=== PATIENT | female | born 1990 | race Caucasian/White ===

== ENCOUNTER → 2019-12-28 13:43 | Outpatient (CLI) | payer BC, SELFPAY ==
--- NOTE | 2019-12-28 13:51 | MM_ITS ---
PROCEDURE: MM DIG MAMM DX UNILAT LT CAD Digital Breast Tomosynthesis Included CLINICAL INDICATION: ENLARGED LYMPH NODES IN ARMPIT, BREAST LUMP IN upper outer quadrant COMPARISON: US US BREAST LT COMPLETE from 12/28/2019 TECHNIQUE: Standard CC and MLO images and 3D Tomosynthesis was obtained. R2 CAD reviewed. FINDINGS: Breast is composed primarily of fat with scattered fibroglandular densities. A skin marker was placed upper-outer quadrant. There is an area of slightly asymmetric glandular elements below the skin marker. Link images reveal no definite mass and there is no obvious architectural distortion. Ultrasound performed the same date showed fairly well-defined hypoechoic lesion 2 o'clock position most consistent with a lipoma measuring approximately 1 point 7 by 1.3 cm. I would recommend a six-month follow-up left mammogram and ultrasound to evaluate for interval stability. IMPRESSION: Fatty parenchyma with asymmetric glandular elements as described BI-RAD Category: 3 Probably Benign Finding Short Term Follow-up FOLLOW-UP: 6M 6Month Follow-up (A letter has been sent to the patient regarding results of the study.) Dictated by: Dr. Fran Shoemaker MD 01/02/2020 07:52 Dr. Fran Shoemaker MD in [place] 01/02/2020 07:52
--- NOTE | 2019-12-28 13:51 | US_ITS ---
PROCEDURE: US BREAST LT COMPLETE CLINICAL INDICATION: ENLARGED LYMPH NODES IN ARMPIT, BREAST LUMP IN FEMALE COMPARISON: US BL US BREAST-LT COMPLETE W/AXILLA from 08/14/2015 FINDINGS: Ultrasound reveals primarily homogeneous echogenicity consistent with fatty breast parenchyma. There is a hypoechoic oval well-defined lesion at the 2 o'clock position outer breast measuring approximately 1.3 by 1.7 cm. There are 2 normal appearing nodes in the axilla. IMPRESSION: Probable lipoma however recommend patient return for six-month follow-up left mammogram and ultrasound exam to evaluate for interval stability. Dictated by: Dr. Fran Shoemaker MD 01/02/2020 07:54 Dr. Fran Shoemaker MD in [place] 01/02/2020 07:54
== END ==
PROVIDERS: PCP Nurse Practitioner; Visit Provider Nurse Practitioner
DX: N63.21 Unspecified lump in the left breast, upper outer quadrant (principal); R59.0 Localized enlarged lymph nodes
CPT/HCPCS: 76641; 77061; 77065; G0279

== ENCOUNTER → 2021-03-18 10:58 | Outpatient (CLI) | payer BC, SELFPAY | PROVIDERS: PCP Family Medicine; Visit Provider Nurse Practitioner | DX: Z20.822 Contact with and (suspected) exposure to COVID-19 (principal) | CPT/HCPCS: C9803; U0003; U0005 ==

== ENCOUNTER 2021-03-19 17:55 | Emergency (ER) | payer BC, SELFPAY ==
[2021-03-19 18:25] VITALS: BP 121/88; PULSE 100; RESP 18; TEMP 37.8; O2SAT 98; BMI 40.2
[2021-03-19 18:43] LABS: UTC Strep Screen (Rapid) Positive (Negative)
--- NOTE | 2021-03-19 18:46 | HMH.EDUTC ---
[facility] [place] Disposition Clinical Impression: Strep throat Disposition: Home, Self-Care Condition on Discharge: Good Instructions: DI for Strep Throat, Strep Throat Additional Instructions: Drink plenty of fluids. Take tylenol or ibuprofen for pain or fever. Take the medications as directed. Follow up with your regular doctor. GO TO THE ER FOR ANY WORSENING SYMPTOMS Throw your tooth brush away and get a new one. Prescriptions: Brompheniramine/Pseudoephed/Dm [Bromfed Dm Cough Syrup] 5 ml PO Q6HP PRN #240 ml PRN Reason: Cough Transmission Status: Pending to [facility] Amoxicillin [Amoxicillin 500mg Tab] 500 mg PO TID 10 Days #30 tab Transmission Status: Pending to [facility] predniSONE [Prednisone 20mg Tab] 20 mg PO BID 4 Days #8 tab Transmission Status: Pending to [facility] Referrals: Serafin Alcala MD [Primary Care Provider] - Forms: Work/School Release Time of Disposition: 18:48 Medical Decision Making - Medical Records Medical records reviewed: No: I reviewed the patient's medical records. - Hitesh Inquiry Pt receiving controlled substance: No Vital Signs: 03/19/21 18:25 Temperature 100.1 F H Temperature Source Oral Pulse Rate [Left Radial] 100 H Respiratory Rate 18 Blood Pressure [Right Arm] 121/88 Blood Pressure Mean [Right Arm] 99 Blood Pressure Source [Right Arm] Automatic Cuff Blood Pressure Position [Right Arm] Sitting 02 Sat by Pulse Oximetry 98 Oxygen Delivery Method Room Air - Lab Data Lab results reviewed: Yes: I reviewed the patient's lab results. Lab Results 03/19/21 18:27: Strep Scn Rapid Clinic Positive A [facility] [place] HPI - General Stated complaint: sore throat Time Seen by Provider: 03/19/21 18:46 Mode of Arrival: Ambulatory Source of Information: Patient Limitations: No Limitations Description of Symptoms (Recalled from Triage Doc. by RN): pt to [facility] c/o sore throat x2 days ago HEENT Symptoms (Recalled from RN notes): Yes Resp Symptoms (Recalled from RN notes): No Skin Symptoms (Recalled from RN notes): No MS Symptoms (Recalled from RN notes): No Functional Status (Recalled from RN notes): na - History of Present Illness Provider Complaint: She c/o sore throat for the past 2 days. She has a runny nose and sinus congestion also. She has ran a fever up to 100.4. - Related Data Previous Rx's Medication Instructions Recorded Brompheniramine/Pseudoephed/Dm 10 ml PO Q6HP PRN #300 syrup 01/30/18 [Bromfed Dm Cough Syrup] Fluticasone Propionate [Flonase 2 spr NS DAILY #1 bottle 01/30/18 50mcg nasal spray 16gm] Amoxicillin [Amoxicillin 500mg Tab] 500 mg PO TID 10 Days #30 tab 03/19/21 Brompheniramine/Pseudoephed/Dm 5 ml PO Q6HP PRN #240 ml 03/19/21 [Bromfed Dm Cough Syrup] predniSONE [Prednisone 20mg 20 mg PO BID 4 Days #8 tab 03/19/21 Tab] Allergies Allergy/AdvReac Type Severity Reaction Status Date / Time Sulfa (Sulfonamide Allergy Verified 07/16/17 11:54 Antibiotics) - Worker's Comp Is this a Worker's Comp case?: No [facility] History - Hepatitis A Screen Drug use history?: No High risk sexual behaviors?: No History of sexually transmitted infection?: No Currently employed?: No Childcare worker?: No Do you have indoor plumbing?: Yes Do you have electricity?: Yes Attestation statement:: This patient has been screened for Hepatitis A risk factors. I have reviewed the patient's past medical history: Yes Other Surgeries: Yes: No Previous Surgery - Social History Smoking Status: Never smoker Alcohol Intake: never Substance Use Type: denies use Family Hx:: No significant family history ROS Obtained: Yes All systems reviewed & no additional complaints - Constitutional Constitutional: Reports as per HPI - Eyes Eyes: Denies eye discharge - ENT Ears, Nose, Mouth, and Throat: Reports as per HPI - Cardiovascular Cardiovascular: Denies chest pain - Respiratory Respiratory: Denies ch
[2021-03-19 18:58] VITALS: BP 120/89; PULSE 97; RESP 18; TEMP 37.7; O2SAT 98
== END 2021-03-19 18:59 | disposition home or self-care (01) ==
PROVIDERS: Emergency Provider Nurse Practitioner Family; PCP Family Medicine
DX: J02.0 Streptococcal pharyngitis (principal)
CPT/HCPCS: 87880; 99202; G0463

== ENCOUNTER 2021-03-31 17:08 | Emergency (ER) | payer BC, SELFPAY ==
[2021-03-31 17:10] VITALS: BP 119/77; PULSE 89; RESP 18; TEMP 37; O2SAT 99; BMI 39.3
[2021-03-31 17:23] LABS: UTC Strep Screen (Rapid) Negative (Negative)
--- NOTE | 2021-03-31 17:56 | HMH.EDUTC ---
[facility] [place] Clinical Impression: Upper respiratory infection Qualifiers: URI type: unspecified URI Qualified Code(s): J06.9 - Acute upper respiratory infection, unspecified Disposition: Home, Self-Care Condition on Discharge: Good Instructions: Sore Throat, Azithromycin Additional Instructions: *Monitor Temp, Over the counter Motrin or Tylenol as directed/as needed Tylenol every 4 hours and Motrin every 6 hours (as long as your family doctor has told you that you can take it) for fever or pain. and straight to ER if unable to lower temp less than 101.0 after medication given *Warm salt water gargles may help to soothe the throat *Throat Lozenges *Warm fluids like tea with honey may help to soothe the throat *Sleep elevated *Humidifier/Vaporizer *Flonase 2 sprays in each nostril daily but be aware that it may take 2-3 days before you notice improvement Your throat swab was sent for culture. Those results are typically sent to your primary care. Be sure to follow up in 2-3 days with your family doctor/primary care physician if no improvement so they can review those result and treat if necessary. If you don?t have a primary care doctor, I recommend you get one but in the mean time, you will have to return to a walk in clinic Follow up IMMEDIATELY for new or worsening symptoms or no Noticeable improvement over the next 48-72 hours. 911 for difficulty breathing or swallowing Prescriptions: Fluticasone Propionate [Flonase 50mcg nasal spray 16gm] 1 spr NS DAILY #1 each Transmission Status: Pending to [facility] Azithromycin [Z-Jules 250mg Tab] 250 mg PO DIRECTED #6 tab Transmission Status: Pending to [facility] Referrals: Serafin Alcala MD [Primary Care Provider] - As needed Time of Disposition: 18:05 Medical Decision Making - Hitesh Inquiry Pt receiving controlled substance: No Hitesh was queried for this patient: No Vital Signs: 03/31/21 17:10 Temperature 98.6 F Temperature Source Oral Pulse Rate [Right Brachial] 89 Respiratory Rate 18 Blood Pressure [Right Arm] 119/77 Blood Pressure Mean [Right Arm] 91 Blood Pressure Source [Right Arm] Automatic Cuff Blood Pressure Position [Right Arm] Sitting 02 Sat by Pulse Oximetry 99 Oxygen Delivery Method Room Air - Lab Data Lab results reviewed: Yes: I reviewed the patient's lab results. Lab Results 03/31/21 17:12: Strep Scn Rapid Clinic Negative Orders (Tests/Meds): ORDERS Category Date Time Status Strep Screen Confirmation Stat Micro 03/31/21 17:12 [place] [facility] [place] - General Stated complaint: sore throat Time Seen by Provider: 03/31/21 17:56 Mode of Arrival: Ambulatory Source of Information: Patient Limitations: No Limitations Description of Symptoms (Recalled from Triage Doc. by RN): PATIENT C/O SORE THROAT X 2 DAYS HEENT Symptoms (Recalled from RN notes): Yes Resp Symptoms (Recalled from RN notes): No Skin Symptoms (Recalled from RN notes): No MS Symptoms (Recalled from RN notes): No Functional Status (Recalled from RN notes): WNL - History of Present Illness Provider Complaint: Patient states that she has been having sore throat for several days States that she was worried that she may have Strep throat so she came in wanting to get checked States that she doesnt feel like the antibiotics cleared up the strep throat - Related Data Previous Rx's Medication Instructions Recorded Azithromycin [Z-Jules 250mg Tab] 250 mg PO DIRECTED #6 tab 03/31/21 Fluticasone Propionate [Flonase 1 spr NS DAILY #1 each 03/31/21 50mcg nasal spray 16gm] Allergies Allergy/AdvReac Type Severity Reaction Status Date / Time Sulfa (Sulfonamide Allergy Verified 07/16/17 11:54 Antibiotics) - Worker's Comp Is this a Worker's Comp case?: No [facility] History - Hepatitis A Screen Drug use history?: No High risk sexual behaviors?: No History of sexually transmitted infection?: No Currently employed?: No
[2021-03-31 18:09] VITALS: BP 119/77; PULSE 89; RESP 18; TEMP 37; O2SAT 99
== END 2021-03-31 18:11 | disposition home or self-care (01) ==
PROVIDERS: Emergency Provider Nurse Practitioner; PCP Family Medicine
DX: J06.9 Acute upper respiratory infection, unspecified (principal); Z88.2 Allergy status to sulfonamides
CPT/HCPCS: 87880; 99202; G0463

== ENCOUNTER 2021-04-03 19:51 | Emergency (ER) | payer BC, SELFPAY ==
[2021-04-03 20:00] VITALS: BP 137/100; PULSE 109; RESP 20; TEMP 36.6; O2SAT 100; BMI 40.2
--- NOTE | 2021-04-03 20:34 | HMH.EDUTC ---
[facility] [place] Disposition Clinical Impression: Pharyngitis Qualifiers: Pharyngitis/tonsillitis etiology: unspecified etiology Qualified Code(s): J02.9 - Acute pharyngitis, unspecified Disposition: Home, Self-Care Condition on Discharge: Good Instructions: DI for Pharyngitis/Tonsillopharyngitis -- Adult, Dexamethasone Injection Additional Instructions: Drink plenty of fluids. Take tylenol or ibuprofen for pain or fever. Follow up with your regular doctor. GO TO THE ER FOR ANY WORSENING SYMPTOMS Follow up with the ENT doctor (Dr. Baum) if your sore throat continues. Any sore throat that last over 2 weeks without getting better can be considered a chronic sore throat and should be evaluated by an ENT doctor if it is not mononucleosis. Referrals: Destiny Calhoun MD [Primary Care Provider] - Víctor Baum MD [Staff Physician] - Time of Disposition: 21:40 Medical Decision Making - Medical Records Medical records reviewed: No: I reviewed the patient's medical records. - Hitesh Inquiry Pt receiving controlled substance: No Vital Signs: 04/03/21 20:00 04/03/21 21:19 Temperature 97.9 F 97.9 F Temperature Source Oral Pulse Rate 109 H Pulse Rate [Left] 109 H Respiratory Rate 20 20 Blood Pressure 137/100 H Blood Pressure [Right Arm] 137/100 H Blood Pressure Mean [Right Arm] 112 02 Sat by Pulse Oximetry 100 - Lab Data Lab results reviewed: Yes: I reviewed the patient's lab results. Lab Results 04/03/21 20:43: Strep Scn Rapid Clinic Negative 04/03/21 21:16: Monoscreen Negative Orders (Tests/Meds): ED MEDICATIONS Discontinued Medications Generic Name Dose Route Start Last Admin Trade Name Freq PRN Reason Stop Dose Admin Dexamethasone Sodium Phosphate 8 mg 04/03/21 21:34 04/03/21 21:38 Dexamethasone 4mg/Ml 1ml Vial IM 04/03/21 21:35 8 mg ONCE ONE Administration ORDERS Category Date Time Status Full Resp Panel w/COVID ([facility]) Routine Lab 04/03/21 21:16 Received Strep Screen Confirmation Routine Micro 04/03/21 20:43 Received [facility] [place] HPI - General Stated complaint: sore throat Time Seen by Provider: 04/03/21 20:36 Mode of Arrival: Ambulatory Source of Information: Patient Limitations: No Limitations Description of Symptoms (Recalled from Triage Doc. by RN): pt states she tested positive for strep on 03/19. pt was given amoxicillin and steroids. pt came back on 03/31 and tested neg. for strep. pt was given a zpack. pt is back today stating if feels like there is something stuck in her throat on the R side. HEENT Symptoms (Recalled from RN notes): Yes (sore throat) Resp Symptoms (Recalled from RN notes): No Skin Symptoms (Recalled from RN notes): No MS Symptoms (Recalled from RN notes): No Functional Status (Recalled from RN notes): wnl - History of Present Illness Provider Complaint: She is back with continued sore throat. She was diagnosed with strep throat and treated with amoxicillin and steroids. She got better from that, then on 03/31 her sore throat returned. She came back there then and tested negative for strep throat. She was started on a z-pack then. She states that today her throat has got worse instead of better. Her soreness is located on the right side of her throat. She also has had some mild right ear pain and fullness. She denies any fever, chills or cough since she got better from the strep throat after 03/19. - Related Data Previous Rx's Medication Instructions Recorded Azithromycin [Z-Jules 250mg Tab] 250 mg PO DIRECTED #6 tab 03/31/21 Fluticasone Propionate [Flonase 1 spr NS DAILY #1 each 03/31/21 50mcg nasal spray 16gm] Allergies Allergy/AdvReac Type Severity Reaction Status Date / Time Sulfa (Sulfonamide Allergy Verified 07/16/17 11:54 Antibiotics) - Worker's Comp Is this a Worker's Comp case?: No [facility] History - Hepatitis A Screen Drug use history?: No High risk sexual behaviors?: No History of sexually transmit
[2021-04-03 20:58] LABS: UTC Strep Screen (Rapid) Negative (Negative)
[2021-04-03 21:19] VITALS: BP 137/100; PULSE 109; RESP 20; TEMP 36.6
[2021-04-03 21:26] LABS: Adenovirus,PCR Not Detected (NotDetected); Bordetella Pertussis Not Detected (NotDetected); Chlamydophila Pneumoniae, PCR Not Detected (NotDetected); Coronavirus 19, PCR Not Detected (NotDetected); Coronavirus 229E Not Detected (NotDetected); Coronavirus NL63 Not Detected (NotDetected); Coronavirus OC43 Not Detected (NotDetected); Coronovirus HKU1,PCR Not Detected (NotDetected); Human Metapneumovirus Not Detected (NotDetected); Influenza A, PCR Not Detected (NotDetected); Influenza AH1, 2009 Not Detected (NotDetected); Influenza AH1, PCR Not Detected (NotDetected); Influenza AH3,PCR Not Detected (NotDetected); Influenza B, PCR Not Detected (NotDetected); Mycoplasma Pneumoniae, PCR Not Detected (NotDetected); Parainfluenza 1, PCR Not Detected (NotDetected); Parainfluenza 2, PCR Not Detected (NotDetected); Parainfluenza 3, PCR Not Detected (NotDetected); Parainfluenza 4, PCR Not Detected (NotDetected); Respiratory Syncytial Virus Not Detected (NotDetected); Rhinovirus/Enterovirus Not Detected (NotDetected)
[2021-04-03 21:37] LABS: Monoscreen (Rapid) Negative (Negative)
== END 2021-04-03 21:53 | disposition home or self-care (01) ==
PROVIDERS: Emergency Provider Nurse Practitioner Family; PCP Family Medicine
DX: J02.9 Acute pharyngitis, unspecified (principal); Z20.822 Contact with and (suspected) exposure to COVID-19
CPT/HCPCS: 86318; 87581; 87632; 87798; 87880; 96372; 99203; C9803; G0463; U0003; U0005

== ENCOUNTER 2021-05-07 17:01 | Emergency (ER) | payer BC, SELFPAY ==
[2021-05-07 18:00] VITALS: BP 135/96; PULSE 89; RESP 21; TEMP 36.7; O2SAT 97; BMI 41.6
[2021-05-07 18:17] LABS: UTC Strep Screen (Rapid) Positive (Negative)
--- NOTE | 2021-05-07 18:26 | HMH.EDUTC ---
[facility] [place] Disposition Clinical Impression: Strep throat Disposition: Home, Self-Care Condition on Discharge: Good Instructions: Strep Throat, DI for Strep Throat, Amoxicillin Additional Instructions: *Monitor Temp, Over the counter Motrin or Tylenol as directed/as needed Tylenol every 4 hours and Motrin every 6 hours (as long as your family doctor has told you that you can take it) for fever or pain. and straight to ER if unable to lower temp less than 101.0 after medication given *Warm salt water gargles may help to soothe the throat *Throat Lozenges *Warm fluids like tea with honey may help to soothe the throat *Sleep elevated *Humidifier/Vaporizer *If you did not take Penicillin shot or was unable to, start taking antibiotic immediately and make sure that you take it for the FULL length of time although you should start to feel better in 24-48 hours *change toothbrush and toothpaste 24-48 hours after starting to take antibiotics so you do not reinfect yourself Monitor Temp. Tylenol and/or Ibuprofen as needed. ER if fever is no less than 101 despite alternating Tylenol and Ibuprofen * Encourage fluids, water, Gatorade, powerade, pedialyte if /toddler/or child *Cold fluids, popsicles and ice cream may feel good on his throat Follow up IMMEDIATELY for new or worsening symptoms or no Noticeable improvement over the next 48-72 hours. 911 for difficulty breathing or swallowing Prescriptions: Amoxicillin [Amoxicillin 875MG Tab] 875 mg PO Q12H #20 tab Transmission Status: Pending to [facility] Referrals: Destiny Calhoun MD [Primary Care Provider] - As needed Time of Disposition: 18:34 Medical Decision Making - Hitesh Inquiry Pt receiving controlled substance: No Hitesh was queried for this patient: No Vital Signs: 05/07/21 18:00 05/07/21 18:30 Temperature 98.1 F 98.1 F Temperature Source Oral Pulse Rate 89 Pulse Rate [Left Brachial] 89 Respiratory Rate 21 21 Blood Pressure 135/96 H Blood Pressure [Left Arm] 135/96 H Blood Pressure Mean [Left Arm] 109 Blood Pressure Source [Left Arm] Automatic Cuff Blood Pressure Position [Left Arm] Sitting 02 Sat by Pulse Oximetry 97 Oxygen Delivery Method Room Air - Lab Data Lab results reviewed: Yes: I reviewed the patient's lab results. Lab Results 05/07/21 18:09: Strep Scn Rapid Clinic Positive A [facility] [place] HPI - General Stated complaint: sore throat Time Seen by Provider: 05/07/21 18:26 Mode of Arrival: Ambulatory Source of Information: Patient Limitations: No Limitations Description of Symptoms (Recalled from Triage Doc. by RN): PATIENT C/O SORE THROAT SINCE THIS MORNING HEENT Symptoms (Recalled from RN notes): Yes Resp Symptoms (Recalled from RN notes): No Skin Symptoms (Recalled from RN notes): No MS Symptoms (Recalled from RN notes): No Functional Status (Recalled from RN notes): WNL - History of Present Illness Provider Complaint: Patient state that she woke up this morning with sore throat States that as the day went on it continued to get worse State that this evening her throat was still hurting so she came into get checked States that she gets strep throat often - Related Data Previous Rx's Medication Instructions Recorded Amoxicillin [Amoxicillin 875MG 875 mg PO Q12H #20 tab 05/07/21 Tab] Allergies Allergy/AdvReac Type Severity Reaction Status Date / Time Sulfa (Sulfonamide Allergy Verified 07/16/17 11:54 Antibiotics) - Worker's Comp Is this a Worker's Comp case?: No [facility] History - Hepatitis A Screen Drug use history?: No High risk sexual behaviors?: No History of sexually transmitted infection?: No Currently employed?: No Childcare worker?: No Do you have indoor plumbing?: Yes Do you have electricity?: Yes Attestation statement:: This patient has been screened for Hepatitis A risk factors. I have reviewed the patient's past medical history: Yes Other Surgeries: Yes: No Previous Surgery
[2021-05-07 18:30] VITALS: BP 135/96; PULSE 89; RESP 21; TEMP 36.7; O2SAT 97
== END 2021-05-07 18:39 | disposition home or self-care (01) ==
PROVIDERS: Emergency Provider Nurse Practitioner; PCP Family Medicine
DX: J02.0 Streptococcal pharyngitis (principal)
CPT/HCPCS: 87880; 99202; G0463

== ENCOUNTER 2021-09-13 13:35 | Emergency (ER) | payer BC, SELFPAY ==
[2021-09-13 14:59] VITALS: BP 124/86; PULSE 105; RESP 17; TEMP 37.2; O2SAT 100; BMI 40.2
--- NOTE | 2021-09-13 15:17 | HMH.EDUTC ---
[facility] [place] Impression: Strep throat Disposition: Home, Self-Care Condition on Discharge: Good Instructions: Strep Throat, DI for Strep Throat, Amoxicillin Additional Instructions: *Monitor Temp, Over the counter Motrin or Tylenol as directed/as needed Tylenol every 4 hours and Motrin every 6 hours (as long as your family doctor has told you that you can take it) for fever or pain. and straight to ER if unable to lower temp less than 101.0 after medication given *Warm salt water gargles may help to soothe the throat *Throat Lozenges *Warm fluids like tea with honey may help to soothe the throat *Sleep elevated *Humidifier/Vaporizer *If you did not take Penicillin shot or was unable to, start taking antibiotic immediately and make sure that you take it for the FULL length of time although you should start to feel better in 24-48 hours *change toothbrush and toothpaste 24-48 hours after starting to take antibiotics so you do not reinfect yourself Monitor Temp. Tylenol and/or Ibuprofen as needed. ER if fever is no less than 101 despite alternating Tylenol and Ibuprofen * Encourage fluids, water, Gatorade, powerade, pedialyte if /toddler/or child *Cold fluids, popsicles and ice cream may feel good on his throat Follow up IMMEDIATELY for new or worsening symptoms or no Noticeable improvement over the next 48-72 hours. 911 for difficulty breathing or swallowing Prescriptions: Amoxicillin [Amoxicillin 500mg Tab] 500 mg PO BID 10 Days #20 tab Transmission Status: Received by [id number] Referrals: Destiny Calhoun MD [Primary Care Provider] - As needed Time of Disposition: 15:45 Medical Decision Making - Hitesh Inquiry Pt receiving controlled substance: No Hitesh was queried for this patient: No Vital Signs: 09/13/21 14:59 Temperature 99.0 F Temperature Source Oral Pulse Rate [Left Radial] 105 H Respiratory Rate 17 Blood Pressure [Right Arm] 124/86 Blood Pressure Mean [Right Arm] 98 02 Sat by Pulse Oximetry 100 - Lab Data Lab results reviewed: Yes: I reviewed the patient's lab results. Lab Results 09/13/21 14:55: Group A Strep Rapid Positive A Orders (Tests/Meds): ED MEDICATIONS Discontinued Medications Generic Name Dose Route Start Last Admin Trade Name Freq PRN Reason Stop Dose Admin Methylprednisolone Sodium Succinate 125 mg 09/13/21 15:45 09/13/21 15:52 Methylprednisolone Sod Succ 125mg Vial IM 09/13/21 15:46 125 mg ONCE ONE Administration Medical Decision Narrative: denies states that she has [place] [facility] [place] - General Stated complaint: sore throat Time Seen by Provider: 09/13/21 15:17 Source of Information: Patient Description of Symptoms (Recalled from Triage Doc. by RN): patient comes in today for sore throat. symtpoms began yesterday HEENT Symptoms (Recalled from RN notes): Yes Resp Symptoms (Recalled from RN notes): No Skin Symptoms (Recalled from RN notes): No MS Symptoms (Recalled from RN notes): No Functional Status (Recalled from RN notes): wnl - History of Present Illness Provider Complaint: Patient states that she started having sore throat yesterday and it has continued to get worse States that today her throat was still hurting so she came in to get it checked out - Related Data Previous Rx's Medication Instructions Recorded Amoxicillin [Amoxicillin 875MG 875 mg PO Q12H #20 tab 05/07/21 Tab] Amoxicillin [Amoxicillin 500mg Tab] 500 mg PO BID 10 Days #20 tab 09/13/21 Allergies Allergy/AdvReac Type Severity Reaction Status Date / Time Sulfa (Sulfonamide Allergy Verified 07/16/17 11:54 Antibiotics) - Worker's Comp Is this a Worker's Comp case?: No [facility] History - Hepatitis A Screen Attestation statement:: This patient has been screened for Hepatitis A risk factors. I have reviewed the patient's past medical history: Yes Other Surgeries: Yes: No Previous Surgery - Social Histo
[2021-09-13 15:35] LABS: Strep Scrn Group A (Rapid) Positive (Negative)
[2021-09-13 15:53] VITALS: BP 124/86; PULSE 105; RESP 17; TEMP 37.2
== END 2021-09-13 16:03 | disposition home or self-care (01) ==
PROVIDERS: Emergency Provider Nurse Practitioner; PCP Family Medicine
DX: J02.0 Streptococcal pharyngitis (principal)
CPT/HCPCS: 87430; 99212; G0463

== ENCOUNTER → 2021-12-18 12:44 | Outpatient (CLI) | payer BC, SELFPAY ==
--- NOTE | 2021-12-18 13:15 | US_ITS ---
FINAL REPORT CLINICAL HISTORY: PELVIC PAIN FINDINGS: Transvaginal sonographic images of the pelvis were obtained. The uterus measures 7.3 x 4.6 x 3.7 cm. The endometrium measures 3 mm, which is within normal limits. An IUD is seen within the endometrial cavity. No uterine mass is identified. The right ovary measures 3.2 cm in length and left ovary measures 3.1 cm in length. Normal blood flow seen to the ovaries. Small follicles are present. There is no evidence of free fluid. IMPRESSION: IUD within the endometrial cavity. No acute abnormality identified. Reviewed, Interpreted and Dictated by Blayne Daily III, MD Transcribed by Harjinder Woods Authenticated and [facility]
== END ==
PROVIDERS: PCP Family Medicine; Visit Provider Nurse Practitioner Family
DX: R10.2 Pelvic and perineal pain (principal)
CPT/HCPCS: 76830

== ENCOUNTER 2022-07-31 13:02 | Emergency (ER) | payer BC, SELFPAY ==
[2022-07-31 13:03] VITALS: BP 119/80; PULSE 77; RESP 20; TEMP 36.9; O2SAT 100; BMI 39.3
[2022-07-31 13:36] LABS: Apearance,Urine Clear (Clear); Color,Urine Yellow (Yellow)
--- NOTE | 2022-07-31 13:36 | EXP.UTC ---
Discharge Plan Disposition Patient Disposition: Home, Self-Care Condition: Good Prescriptions Prescriptions: New phenazopyridine 200 mg Tablet 200 mg PO TID 2 Days Qty: 6 0RF nitrofurantoin monohyd/m-cryst [Macrobid] 100 mg Capsule 100 mg PO BID Qty: 10 0RF Rx Instructions: must administer with a meal/food No Action amoxicillin 500 MG tablet 500 mg PO BID 10 Days Qty: 20 0RF amoxicillin 875 MG tablet 875 mg PO Q12H Qty: 20 0RF Referrals Follow up/Referrals: Destiny Calhoun MD [Primary Care Provider] - See instructions Activity Restrictions/Add. Instructions Additional Instructions/Restrictions: Drink plenty of fluids. Take tylenol or ibuprofen for pain or fever. Take the medications as directed. Follow up with your regular doctor. GO TO THE ER FOR ANY WORSENING SYMPTOMS The pyridium will make your urine turn orange, this is an expected side effect. It will stain your clothes if it comes into contact with them. We will culture the urine. That will tell what bacteria is causing your infection and which antibiotics will treat it best. Sometimes the first antibiotic we prescribe turns out to not work against different bacteria. So, make sure you follow up within 3 days if you are not getting better. Clinical Impressions Clinical Impression: UTI (urinary tract infection) Instructions Patient Instructions: Urine Culture, DI for Urinary Tract Infection (UTI), Phenazopyridine Discharge ED Provider: Calderon Gill [facility] General Stated complaint: corbin when urinates Mode of Arrival: Ambulatory Source of Information: Patient Limitations: No Limitations Time Seen by Provider: 07/31/22 13:36 Description of Symptoms (Recalled from Triage Doc. by RN): burn with urination HEENT Symptoms (Recalled from RN notes): No Resp Symptoms (Recalled from RN notes): No Skin Symptoms (Recalled from RN notes): No MS Symptoms (Recalled from RN notes): No Functional Status (Recalled from RN notes): n/a History of Present Illness Provider Complaint: She states that she has had dysuria for the past 2 days. Related Data Previous Rx's Medication Instructions Recorded amoxicillin 875 mg tablet 875 mg PO Q12H #20 tabs 05/07/21 amoxicillin 500 mg tablet 500 mg PO BID 10 days #20 tabs 09/13/21 nitrofurantoin 100 mg PO BID #10 caps 07/31/22 monohydrate/macrocrystals 100 mg capsule (Macrobid) phenazopyridine 200 mg tablet 200 mg PO TID 2 days #6 tabs 07/31/22 Allergies Allergy/AdvReac Type Severity Reaction Status Date / Time Sulfa (Sulfonamide Allergy Verified 07/16/17 11:54 Antibiotics) Worker's Comp Is this a Worker's Comp case?: No PFSH [facility] Disclaimer: The information contained in this section may have been updated after the patient was seen, as this information can be updated by other users. Social History Smoking Status: Never smoker alcohol intake: never substance use type: denies use current occupational status: employed Travel in the last 8 weeks: None ROS Obtained: Yes All systems reviewed & no additional complaints except as documented Constitutional Constitutional: Reports system reviewed and no additional complaints, except as documented, Denies chills and Denies fever(s) Eyes Eyes: Denies eye discharge ENT Ears, Nose, Mouth, and Throat: Denies dysphagia, Denies sore throat and Denies throat swelling Cardiovascular Cardiovascular: Denies chest pain and Denies dyspnea Respiratory Respiratory: Denies chest congestion, Denies cough and Denies dyspnea Gastrointestinal Gastrointestingal: Denies abdominal pain, constipation, diarrhea, dysphagia, nausea or vomiting Genitourinary Female Genitourinary: Reports as per HPI, Reports dysuria, Reports sexual dysfunction, Reports urinary frequency, Denies urinary incontinence and Reports urinary hesitancy Musculoskeletal Musculoskeletal: Denies arthralgias a
[2022-07-31 13:37] LABS: Bilirubin,Urine Negative (Negative); Blood, Urine 2+ (Negative); Glucose,Urine (UA) Negative (Negative); Ketones,Urine Negative (Negative); Protein,Urine 1+ (Negative); Specific Gravity, Urine 1.025 (1.005-1.030); UTC Leukocyte Esterase,Urine 1+ (Negative); UTC Nitrate,Urine Negative (Negative); Urobilinogen,Urine 1 EU/dl (0.2)
[2022-07-31 14:01] VITALS: BP 119/80; PULSE 77; RESP 20; TEMP 36.9; O2SAT 100
== END 2022-07-31 14:00 | disposition home or self-care (01) ==
PROVIDERS: Emergency Provider Nurse Practitioner Family; PCP Family Medicine
DX: N39.0 Urinary tract infection, site not specified (principal); B96.89 Other specified bacterial agents as the cause of diseases classified elsewhere
CPT/HCPCS: 81003; 87086; 87088; 87186; 99212; 99214; G0463

== ENCOUNTER 2022-08-30 15:43 | Emergency (ER) | payer BC, SELFPAY ==
[2022-08-30 16:15] VITALS: BP 146/90; PULSE 84; RESP 20; TEMP 36.9; O2SAT 98; BMI 41.3
[2022-08-30 16:36] LABS: UTC Strep Screen (Rapid) Negative (Negative)
--- NOTE | 2022-08-30 16:37 | EXP.UTC ---
Discharge Plan Disposition Patient Disposition: Home, Self-Care Condition: Good Prescriptions Prescriptions: No Action levothyroxine 25 mcg tablet 25 mcg PO DAILY Referrals Follow up/Referrals: Destiny Calhoun MD [Primary Care Provider] - See instructions Activity Restrictions/Add. Instructions Additional Instructions/Restrictions: Monitor Temp, Over the counter Motrin or Tylenol as directed/as needed Tylenol every 4 hours and Motrin every 6 hours (as long as your family doctor has told you that you can take it) for fever or pain. and straight to ER if unable to lower temp less than 101.0 after medication given *Warm salt water gargles may help to soothe the throat *Throat Lozenges? *Warm fluids like tea with honey may help to soothe the throat? *Sleep elevated *Humidifier/Vaporizer Your throat swab was sent for culture. Those results are typically sent to your primary care. Be sure to follow up in 2-3 days with your family doctor/primary care physician if no improvement so they can review those result and treat if necessary. If you don?t have a primary care doctor, I recommend you get one but in the mean time, you will have to return to a walk in clinic Follow up IMMEDIATELY for new or worsening symptoms or no Noticeable improvement over the next 48-72 hours. 911 for difficulty breathing or swallowing Clinical Impressions Clinical Impression: Acute sore throat Stand Alone Forms Stand Alone Forms: Work/School Release Instructions Patient Instructions: Sore Throat Discharge ED Provider: Jessica Barfield [facility] General Stated complaint: Sore throat Mode of Arrival: Ambulatory Source of Information: Patient Limitations: No Limitations Time Seen by Provider: 08/30/22 16:38 Description of Symptoms (Recalled from Triage Doc. by RN): PATIENT C/O SORE THROAT THAT STARTED THIS MORNING HEENT Symptoms (Recalled from RN notes): Yes Resp Symptoms (Recalled from RN notes): No Skin Symptoms (Recalled from RN notes): No MS Symptoms (Recalled from RN notes): No Functional Status (Recalled from RN notes): WNL History of Present Illness Provider Complaint: Patient states that she has been having sore throat since this morning Denies fever, denies headache States that throat hurt on her right side when she would swallow and worried she may have strep throat Related Data Home Medications Medication Instructions Recorded Confirmed levothyroxine 25 mcg tablet 25 mcg PO DAILY Hypothyroid 08/30/22 08/30/22 Allergies Allergy/AdvReac Type Severity Reaction Status Date / Time Sulfa (Sulfonamide Allergy Verified 07/16/17 11:54 Antibiotics) Worker's Comp Is this a Worker's Comp case?: No [facility] Disclaimer: The information contained in this section may have been updated after the patient was seen, as this information can be updated by other users. Social History (Updated 08/01/22 @ 13:22 by Calderon Gill APRN) Smoking Status: Never smoker alcohol intake: never substance use type: denies use current occupational status: employed Travel in the last 8 weeks: None ROS Obtained: Yes All systems reviewed & no additional complaints except as documented and Yes Systems reviewed as appropriate & no additional complaints except as documented Constitutional Constitutional: Reports system reviewed and no additional complaints, except as documented and Reports as per HPI ENT Ears, Nose, Mouth, and Throat: Reports system reviewed and no additional complaints, except as documented, Reports as per HPI and Reports sore throat Cardiovascular Cardiovascular: Reports system reviewed and no additional complaints, except as documented and Reports as per HPI Respiratory Respiratory: Reports system reviewed and no additional complaints, except as documented and Reports as per HPI Gastrointestinal Gastrointestingal: Reports system reviewed and no additional complaints, except as documented
[2022-08-30 16:45] VITALS: BP 146/90; PULSE 84; RESP 20; TEMP 36.9; O2SAT 98
== END 2022-08-30 16:47 | disposition home or self-care (01) ==
PROVIDERS: Emergency Provider Nurse Practitioner; PCP Family Medicine
DX: J02.9 Acute pharyngitis, unspecified (principal)
CPT/HCPCS: 87880; 99212; 99213; G0463

== ENCOUNTER 2022-11-14 17:18 | Emergency (ER) | payer BC, SELFPAY ==
[2022-11-14 17:50] VITALS: BP 130/85; PULSE 91; RESP 18; TEMP 36.8; O2SAT 99; BMI 40.0
--- NOTE | 2022-11-14 18:30 | EXP.UTC ---
Discharge Plan Disposition Patient Disposition: Home, Self-Care Condition: Good Prescriptions Prescriptions: No Action levothyroxine 75 mcg tablet 75 mcg PO DAILY Referrals Follow up/Referrals: Destiny Calhoun MD [Primary Care Provider] - See instructions Activity Restrictions/Add. Instructions Additional Instructions/Restrictions: You was given a bottle of eye drops Fluorometholne in the [facility] apply one drop to left eye three times daily Follow up with Eye Doctor if no improvement or any worsening of symptoms Return if needed Straight to ER if any life threatening symptoms Clinical Impressions Clinical Impression: Eye problem Instructions Patient Instructions: How to Instill Eye Drops Discharge ED Provider: Jessica Barfield [facility] HPI General Stated complaint: LT eye irritated Mode of Arrival: Ambulatory Source of Information: Patient Limitations: No Limitations Time Seen by Provider: 11/14/22 18:30 Description of Symptoms (Recalled from Triage Doc. by RN): PATIENT C/O LEFT EYE PAIN SINCE YESTERDAY HEENT Symptoms (Recalled from RN notes): Yes Resp Symptoms (Recalled from RN notes): No Skin Symptoms (Recalled from RN notes): No MS Symptoms (Recalled from RN notes): No Functional Status (Recalled from RN notes): WNL History of Present Illness Provider Complaint: Patient state that she was driving yesterday and he left eye felt itchy and she started rubbing it then it it felt dry and irritated States that she used some drops at home that she was not aware had sulfa in it and she is allergic and this morning her left eye was puffy States that today it has continued to feel itchy and irritated Denies known FB states this evening it wasn't any better so she came in Related Data Home Medications Medication Instructions Recorded Confirmed levothyroxine 75 mcg tablet 75 mcg PO DAILY Supplement 11/14/22 11/14/22 Allergies Allergy/AdvReac Type Severity Reaction Status Date / Time Sulfa (Sulfonamide Allergy Verified 07/16/17 11:54 Antibiotics) Worker's Comp Is this a Worker's Comp case?: No [facility] Disclaimer: The information contained in this section may have been updated after the patient was seen, as this information can be updated by other users. Social History (Updated 08/01/22 @ 13:22 by Calderon Gill APRN) Smoking Status: Never smoker alcohol intake: never substance use type: denies use current occupational status: employed Travel in the last 8 weeks: None ROS Obtained: Yes All systems reviewed & no additional complaints except as documented and Yes Systems reviewed as appropriate & no additional complaints except as documented Eyes Eyes: Reports system reviewed and no additional complaints, except as documented, Reports as per HPI, Reports irritation and Reports itchy eyes Allergic/Immunologic Allergic/Immunologic: Reports itchy eyes Physical Exam General General appearance: alert and in no apparent distress Eye Eye exam: Present other (redness and small fluid filled pocket noted in bottom lash line in corner of left eye) Respiratory Respiratory exam: Present normal lung sounds bilaterally; Absent respiratory distress or wheezes Cardiovascular Cardiovascular exam: Present regular rate, normal rhythm and normal heart sounds Abdominal Exam Abdominal exam: Present soft, distention and normal bowel sounds Neurological Exam Neurological exam: Present alert, oriented X3 and normal gait Medical Decision Making Hitesh Inquiry Pt receiving controlled substance: No Hitesh was queried for this patient: No Vital Signs: 11/14/22 17:50 Temperature 98.3 F Temperature Source Oral Pulse Rate [Left Brachial] 91 H Respiratory Rate 18 Blood Pressure [Left Arm] 130/85 Blood Pressure Mean [Left Arm] 100 Blood Pressure Source [Left Arm] Automatic Cuff Blood Pressure Position [Left Arm] Sitting 02 Sat by Pulse Oximetry 99 Oxygen Delivery Method Room Air Medical Decision Narrativ
[2022-11-14 19:10] VITALS: BP 130/85; PULSE 91; RESP 18; TEMP 36.8; O2SAT 99
== END 2022-11-14 19:12 | disposition home or self-care (01) ==
PROVIDERS: Emergency Provider Nurse Practitioner; PCP Family Medicine
DX: H57.12 Ocular pain, left eye (principal)
CPT/HCPCS: 99212; 99213; G0463

== ENCOUNTER 2022-12-19 09:52 | Emergency (ER) | payer BC, SELFPAY ==
--- NOTE | 2022-12-19 10:36 | XR_ITS ---
PROCEDURE INFORMATION: Exam: XR Left Ankle Exam date and time: 12/19/2022 10:36 AM Age: 32 years old Clinical indication: Pain; Heel; Left; Additional info: Pain in heel, painful when walking TECHNIQUE: Imaging protocol: Radiologic exam of the left ankle. Views: 3 or more views. COMPARISON: No relevant prior studies available. FINDINGS: Bones/joints: Osseous structures are intact. No fracture, dislocation or malalignment. Joint surfaces are perserved. There are small spurs arising from the posterior and plantar aspect of the calcaneus. Soft tissues: Normal. IMPRESSION: No acute bony abnormalities.
--- NOTE | 2022-12-19 10:36 | XR_ITS ---
PROCEDURE INFORMATION: Exam: XR Left Foot Exam date and time: 12/19/2022 10:38 AM Age: 32 years old Clinical indication: Left; Patient HX: Pain in heel, painful to walk, works on hard floors TECHNIQUE: Imaging protocol: Radiologic exam of the left foot. Views: 3 or more views. COMPARISON: CR XR ANKLE LT MIN 3V 12/19/2022 10:36 AM FINDINGS: Bones/joints: Osseous structures are intact. No fracture or malalignment. Visualized joint surfaces are preserved. Small spurs arising from the plantar posterior aspect of the calcaneus. Soft tissues: Unremarkable. IMPRESSION: Small calcaneal spurs otherwise negative exam.
[2022-12-19 10:55] VITALS: BP 125/87; PULSE 76; RESP 18; TEMP 36.6; O2SAT 99; BMI 40.2
--- NOTE | 2022-12-19 11:02 | EXP.UTC ---
Discharge Plan Disposition Patient Disposition: Home, Self-Care Condition: Good Prescriptions Prescriptions: New ibuprofen [IBU] 800 mg tablet 800 mg PO Q8HP PRN (Reason: Moderate Pain) Qty: 30 0RF methylprednisolone 4 mg Tablets,Dose Pack 4 mg PO DIRECTED Qty: 21 0RF No Action levothyroxine 75 mcg tablet 75 mcg PO DAILY Referrals Follow up/Referrals: Destiny Calhoun MD [Primary Care Provider] - See instructions Binta Brown DPM [Staff Physician] - See instructions Activity Restrictions/Add. Instructions Additional Instructions/Restrictions: Rest the extremity, Elevate the extremity as tolerated while you are resting. Take ibuprofen for pain. I sent in a prescription to your pharmacy. Follow up with Dr. Brown (podiatry). I put in a referral but you need to call her office and schedule an appointment. Follow up with your regular doctor. GO TO THE ER FOR ANY WORSENING SYMPTOMS Clinical Impressions Clinical Impression: Pain of left heel, Heel spur Instructions Patient Instructions: DI for Foot Pain Discharge ED Provider: Calderon Gill [facility] General Stated complaint: left heel pain, no accident Time Seen by Provider: 12/19/22 11:02 History of Present Illness Provider Complaint: She c/o left heel pain for the past 2 weeks. She denies any injury. She states that her symptoms are worse in the mornings. Related Data Home Medications Medication Instructions Recorded Confirmed levothyroxine 75 mcg tablet 75 mcg PO DAILY Supplement 11/14/22 11/14/22 Previous Rx's Medication Instructions Recorded ibuprofen 800 mg tablet (IBU) 800 mg PO Q8HP PRN Moderate Pain 12/19/22 #30 tabs methylprednisolone 4 mg tablets in 4 mg PO DIRECTED #21 tabs 12/19/22 a dose pack Allergies Allergy/AdvReac Type Severity Reaction Status Date / Time Sulfa (Sulfonamide Allergy Verified 07/16/17 11:54 Antibiotics) [facility] Disclaimer: The information contained in this section may have been updated after the patient was seen, as this information can be updated by other users. Social History (Updated 08/01/22 @ 13:22 by Calderon Gill APRN) Smoking Status: Never smoker alcohol intake: never substance use type: denies use current occupational status: employed Travel in the last 8 weeks: None ROS Obtained: Yes All systems reviewed & no additional complaints except as documented Constitutional Constitutional: Denies chills and Denies fever(s) Eyes Eyes: Denies eye discharge ENT Ears, Nose, Mouth, and Throat: Denies dizziness, Denies otalgia and Denies sore throat Cardiovascular Cardiovascular: Denies chest pain Respiratory Respiratory: Denies shortness of breath, Denies chest congestion, Denies cough, Denies stridor and Denies wheezing Gastrointestinal Gastrointestingal: Denies nausea or vomiting Musculoskeletal Musculoskeletal: Reports as per HPI Integumentary/Breasts Skin/Breast: Denies rash Neurologic Neurologic: Denies dizziness and Denies paresthesias Allergic/Immunologic Allergic/Immunologic: Denies wheezing Physical Exam General General appearance: alert and in no apparent distress Head Head exam: atraumatic, normocephalic and normal inspection Eye Eye exam: Present normal appearance, PERRL and EOMI ENT ENT exam: Present normal exam, normal oropharynx, mucous membranes moist, TM's normal bilaterally and normal external ear exam Neck Neck exam: Present normal inspection, full ROM and trachea midline; Absent meningismus or lymphadenopathy Chest Chest inspection: Present normal inspection and symmetric chest wall rise; Absent tenderness Respiratory Respiratory exam: Present normal lung sounds bilaterally; Absent respiratory distress Cardiovascular Cardiovascular exam: Present regular rate and normal rhythm; Absent JVD Abdominal Exam Abdominal exam: Present soft and normal bowel sounds; Absent distention, tenderness or guarding Extremities Exam Ext
[2022-12-19 11:38] VITALS: BP 125/87; PULSE 76; RESP 18; TEMP 36.6; O2SAT 99
== END 2022-12-19 11:38 | disposition home or self-care (01) ==
PROVIDERS: Emergency Provider Nurse Practitioner Family; PCP Family Medicine
DX: M79.672 Pain in left foot (principal); M77.32 Calcaneal spur, left foot
CPT/HCPCS: 73610; 73630; 99212; 99214; G0463

== ENCOUNTER → 2023-02-22 12:45 | Outpatient (CLI) | payer BC, SELFPAY ==
--- NOTE | 2023-02-22 13:22 | US_ITS ---
PROCEDURE INFORMATION: Exam: US Right Breast, Complete US Left Breast, Complete Exam date and time: 02/22/2023 1:24 PM Age: 32 years old Clinical indication: Left breast pain.Positive family history of breast cancer TECHNIQUE: Imaging protocol: Complete ultrasound of all four quadrants of the right breast and the retroareolar regions, including ultrasound of the axilla when performed. Complete ultrasound of all four quadrants of the left breast and the retroareolar regions, including ultrasound of the axilla when performed. COMPARISON: No relevant prior studies available. FINDINGS: Breast: No solid or cystic lesions. Other findings: Sonographic images of the right breast including the retroareolar region, all 4 quadrants and the axilla do not demonstrate any solid masses. Incidental 0.3 cm cyst in the left 5 o'clock axis 3 cm from the nipple. No architectural distortion or acoustical shadowing. No skin thickening or axillary adenopathy. IMPRESSION: No sonographic evidence of malignancy. Annual bilateral mammographic screening is recommended to commence at the age of 40 unless otherwise clinically indicated. ASSESSMENT: BI-RADS Category 2: Benign
== END ==
LOC: RAD 12:45
PROVIDERS: PCP Family Medicine; Visit Provider Nurse Practitioner Family
DX: N64.4 Mastodynia (principal); Z80.3 Family history of malignant neoplasm of breast
CPT/HCPCS: 76641

== ENCOUNTER 2023-03-17 16:00 | Outpatient (RCR) | payer BC, SELFPAY ==
--- NOTE | 2023-02-08 18:20 | HMH.PTOPEV ---
PT Outpatient Evaluation Rehab PT Outpatient Evaluation Start: 02/08/23 14:50 Freq: Status: Active Protocol: Document 02/08/23 14:51 MARTARAFAELA (Rec: 02/08/23 18:19 PRECIOUS [id number]) E-signed By Brandee Rocha, PT Outpatient Therapy Subjective History Subjective History Pt is a 32 y/o female who reports chronic L>R heel pain for years. Pt reports pain worsened after playing soccer with her kids in December with severe pain in the L heel the next morning. Pt reports she went to the diesel bus mechanic and had radiographs of her L foot /ankle with impression of Small calcaneal spurs otherwise negative exam. Pt reports she was placed in a boot for 4 weeks which was removed last Tuesday and was provided with PowerSteps to put in her steel toed boots to wear at work. Pt reports she was also prescribed Meloxicam and Ibuprofen. Pt reports no change in pain following such interventions. Pt states she was also given a night splint to wear but it makes her toes tingle and she is unable to tolerate it. Pt reports localized heel pain of the L foot aggravated by prolonged standing/walking for ~15 minutes. Pt denies paresthesia . Pt reports she returns to her MD on 03/15/23 for a follow -up. Medical History: throid dysfunction New diagnosis of cancer in past 12 No months? Chief Complaint Pain Symptom Type Ache,Sharp,Dull Symptoms Relieved By Rest/Positioning,Ice, Prescription Meds,Elevation Prior Functional Limitations None Current Functional Limitations Standing,Squatting,Recreation Activity,Walking,Stairs, Balance Symptom Description Constant but Variable Level of pain today (0-10) 5 Pain scale - at its best (0-10) 3 Pain scale - at its worst (0-10) 10 Ankle/Foot Eval Palpation Tenderness left Ankle/Foot Palpation Findings Tenderness Ankle/Foot Palpation Overall Comment 2/4 TTP of plantar fascia insertion, calcaneus, achilles tendon insertion right Ankle/Foot Palpation Findings Tenderness Ankle/Foot Palpation Overall Comment 1/4 TTP of plantar fascia insertion ROM left Ankle/Foot Dorsiflexion w/Knee Extended 10 Active Range Motion (degrees) Ankle/Foot Plantar Flexion Active Range 45 of Motion (degrees) Ankle/Foot Eversion Active Range of 12 Motion (degrees) Ankle/Foot Inversion Active Range of 20 Motion (degrees) right Ankle/Foot Dorsiflexion w/Knee Extended 12 Active Range Motion (degrees) Ankle/Foot Plantar Flexion Active Range 45 of Motion (degrees) Ankle/Foot Eversion Active Range of 15 Motion (degrees) Ankle/Foot Inversion Active Range of 22 Motion (degrees) MMT left Ankle Dorsiflexion Strength Grade 5 Normal Ankle Plantarflexion Strength Grade 4 Good Foot Eversion Strength Grade 5 Normal Foot Inversion Strength Grade 4 Good right Ankle Dorsiflexion Strength Grade 5 Normal Ankle Plantarflexion Strength Grade 5 Normal Foot Eversion Strength Grade 5 Normal Foot Inversion Strength Grade 5 Normal Lower Extremity Functional Index Activities Today, do you or would you have any difficulty at all with: a.Any of your usual work, housework or No difficulty school activities b. Your usual hobbies, recreational or No difficulty sporting activities c. Getting into or out of the bath No difficulty d. Walking between rooms No difficulty e. Putting on your shoes or socks No difficulty f. Squatting No difficulty g. Lifting an object, like a bag of No difficulty groceries from the floor h. Performing light activities around No difficulty your home i. Performing heavy activities around No difficulty your home j. Getting into or out of a car A little bit of difficulty k. Walking 2 blocks A little bit of difficulty l. Walking a mile Moderate difficulty m. Going up or down 10 stairs (about 1 Moderate difficulty flight of stairs) n. Standing for 1 hour Moderate difficulty o. Sitting for 1 hour Moderate difficulty p. Running on even ground Quite a bit of difficulty q. Running on uneven ground Quite a bit of difficulty r. Making sharp turns while running fast Moderate difficulty s. Hopping A little bit of difficulty t. Rolling over in bed No difficulty LEFI Score Lower Extremity Functional Index Score 61 Outpatient Therapy Assessment Impairments Problems/Impairmments Palpation Tenderness,Impaired Range of Motion,Impaired Strength,Impaired Walking, Impaired Standing,Impaired Stair Climbing,Impaired Incline Stepping,Impaired Stepping on Uneven Surface, Impaired Balance,Subjective C/ O Pain,Impaired Self Care/Self Management Prognosis Rehab Potential Good Clinical Impression Consistent with Diagnosis Yes Short Term Goals Number of Weeks 3 Decrease Subjective C/O Pain Yes: Improve pain at worst to 8/10 to improve overall QOL Patient to be Ind w/ HEP Yes Snf Goals Number of Weeks 6 Decreased Palpation Tenderness Yes: 0-1/4 TTP of PF insertion and distal achilles Increase Range of Motion Yes: Improve L ankle AROM to WNL Increase Strength Yes: Improve L ankle MMT to 4+ -5/5 grossly to assist with function Increase Ability to Walk Yes: >15' to with pain 6/10 or less to assist with ADLs/ function Increase Ability to Stand Yes: >15' to with pain 6/10 or less to assist with ADLs/ function Improve LEFI Score Yes: Improve score to 70/80 to improve overall QOL Decrease Edema Yes Decrease Subjective C/O Pain Yes: Improve pain at worst to 6/10 to improve overall QOL Patient to be Ind w/ Advanced HEP Yes Outpatient Therapy Plan of Care Treatment Plan May Include Therapeutic Exercise Including Home Yes Exercise Program Manual Therapy Techniques Yes Neuromuscular Re-education Yes Therapeutic Activities to Return to Yes Previous Functional/Work Level Gait Training Yes ADL/Self Care Education Yes Dry Needling Yes Thermal Modalities Yes Electrical Stimulation Yes Ultrasound/Phonophoresis Yes Iontophoresis Yes Vasopneumatic Compression Pump Yes Massage Yes Eval/Re-Eval Yes Frequency Times per week 2 Duration Number of Weeks 4-6 Addendums This patient is a candidate for social No or vocational rehab? Patient/Guardian verbally acknowledges Yes understanding of treatment program and consents to further treatment? Patient/Guardian verbally acknowledges Yes understanding of diagnosis, prognosis and goals for treatment? Eval Complexity PT Charges 54273 - Low Complexity Shoulder/Elbow Eval Shoulder Objective Measurements Elbow Objective Measurements PHYSICIAN CERTIFICATION: I certify the specified therapy services for Monique Mcfarlane are required, authorized, and reviewed every 30 days.
--- NOTE | 2023-03-17 17:55 | HMH.RHREAS ---
Rehab Reassessment Rehab OP Re-assessment Start: 02/08/23 14:50 Freq: Status: Active Protocol: Document 03/17/23 16:00 MARTARAFAELA (Rec: 03/17/23 17:50 PRECIOUS [id number]) E-signed By Brandee Rocha PT Lower Extremity Functional Index Activities Today, do you or would you have any difficulty at all with: a.Any of your usual work, housework or A little bit of difficulty school activities b. Your usual hobbies, recreational or A little bit of difficulty sporting activities c. Getting into or out of the bath No difficulty d. Walking between rooms No difficulty e. Putting on your shoes or socks No difficulty f. Squatting A little bit of difficulty g. Lifting an object, like a bag of No difficulty groceries from the floor h. Performing light activities around No difficulty your home i. Performing heavy activities around No difficulty your home j. Getting into or out of a car No difficulty k. Walking 2 blocks Moderate difficulty l. Walking a mile Quite a bit of difficulty m. Going up or down 10 stairs (about 1 Quite a bit of difficulty flight of stairs) n. Standing for 1 hour Quite a bit of difficulty o. Sitting for 1 hour No difficulty p. Running on even ground Quite a bit of difficulty q. Running on uneven ground Quite a bit of difficulty r. Making sharp turns while running fast Moderate difficulty s. Hopping Moderate difficulty t. Rolling over in bed No difficulty LEFI Score Lower Extremity Functional Index Score 56 Rehab Re-assessment Subjective Subjective Pt reports she feels ~60% improved since starting PT. Pt reports she has good and bad days. Pt reports pain in the L heel with walking after sitting for any period of time . Pt reports pain at worst as 5/10 and 2/10 on average within the last week. Pt reports she went to her doctor Tuesday and states I was just told I need to lose weight. Pt reports compliance with HEP . Objective Objective Notes 2/4 TTP of the L calcaneus, 1/ 4 TTP of L PF L ankle AROM: DF 15, PF 45, Inv 25, Ev 12 LLE MMT: 4+/5 PF and Inv, 5/5 DF and Eversion Assessment Progress Assessment Progressing as Expected Assessment Notes Pt has attended 5 PT sessions consisting of L ankle mobility /strengthening, PF/calf stretching, intrinsic foot strengthening, balance/ propriocetion training, manual therapy including IASTM to the calf/achilles, modalities and HEP with good tolerance. Pt demonstrated improved ankle AROM and strength this date compared to the initial evaluation. Pt demonstrated new onset of heel pain that is worse than PF pain that occurs with walking after periods of sitting. Pt demonstrated slight decrease in LEFS outcome measure this date due to this. Pt would continue to benefit from skilled PT to further improve pain, ankle strength and functional activity tolerance to assist with return to PLOF. Patient goals met ST/2 LT/9 Goals Not Met LEFS score, walking tolerance Revised Goals n/a Plan Plan Continue initial POC Frequency of Therapy 1-2x/week Duration of therapy 2 more weeks Time and Billing Re-Eval Time 11 Re-Eval Billing Units 1 PHYSICIAN CERTIFICATION: I certify the specified therapy services for Monique Mcfarlane are required, authorized, and reviewed every 30 days.
== END 2023-03-17 17:00 | disposition home or self-care (01) ==
LOC: PT 16:00
PROVIDERS: PCP Family Medicine; Visit Provider Nurse Practitioner Family
DX: M77.31 Calcaneal spur, right foot (principal); M79.671 Pain in right foot; M79.672 Pain in left foot; M72.2 Plantar fascial fibromatosis
CPT/HCPCS: 97035; 97110; 97140; 97163; 97164

== ENCOUNTER 2024-04-03 17:51 | Emergency (ER) | payer BC, SELFPAY ==
[2024-04-03 18:15] VITALS: BP 140/88; PULSE 125; RESP 18; TEMP 38.7; O2SAT 96; BMI 40.2
[2024-04-03] MEDS: ACETAMINOPHEN 325MG TAB 650 MG PO (18:18)
[2024-04-03 18:28] LABS: UTC Influenza A Antigen Positive (Negative); UTC Influenza B Antigen Negative (Negative)
--- NOTE | 2024-04-03 18:44 | EXP.UTC ---
Discharge Plan Disposition Patient Disposition: Home, Self-Care Condition: Good Prescriptions Prescriptions: New methylprednisolone 4 mg Tablets,Dose Pack 4 mg PO DIRECTED 6 Days Qty: 21 0RF Rx Instructions: Take 1 pack as directed for 6 days ondansetron 4 mg Tablet,Disintegrating 4 mg PO Q8H PRN (Reason: Nausea) Qty: 8 0RF promethazine-DM 6.25-15 mg/5 mL Syrup 5 ml PO Q6H PRN (Reason: Cough) Qty: 240 0RF No Action levothyroxine 75 mcg tablet 75 mcg PO DAILY Referrals Follow up/Referrals: Destiny Calhoun MD [Primary Care Provider] - See instructions Activity Restrictions/Add. Instructions Additional Instructions/Restrictions: Drink plenty of fluids. Take tylenol or ibuprofen for pain or fever. Take the medications as directed. Follow up with your regular doctor. GO TO THE ER FOR ANY WORSENING SYMPTOMS The cough medication (promethazine dm) will make you drowsy, so don't drive or operate heavy machinery after taking it. Clinical Impressions Clinical Impression: Influenza A Instructions Patient Instructions: DI for Influenza -- Adult, Methylprednisolone Print Language Print Language: Turkmen Discharge ED Provider: Calderon Gill [facility] [place] General Stated complaint: cough Mode of Arrival: Ambulatory Source of Information: Patient Time Seen by Provider: 04/03/24 18:44 Description of Symptoms (Recalled from Triage Doc. by RN): COUGH, FEVER HEENT Symptoms (Recalled from RN notes): No Resp Symptoms (Recalled from RN notes): Yes Skin Symptoms (Recalled from RN notes): No MS Symptoms (Recalled from RN notes): No Functional Status (Recalled from RN notes): WNL Related Data Home Medications ?Medication ?Instructions ?Recorded ?Confirmed levothyroxine 75 mcg tablet 75 mcg PO DAILY Supplement 11/14/22 04/03/24 Previous Rx's ?Medication ?Instructions ?Recorded methylprednisolone 4 mg tablets in 4 mg PO DIRECTED 6 days #21 tabs 04/03/24 a dose pack ondansetron 4 mg disintegrating 4 mg PO Q8H PRN Nausea #8 tabs 04/03/24 tablet promethazine-DM 6.25 mg-15 mg/5 mL 5 ml PO Q6H PRN Cough #240 mL 04/03/24 oral syrup Allergies Allergy/AdvReac Type Severity Reaction Status Date / Time Sulfa (Sulfonamide Allergy Verified 03/15/23 10:54 Antibiotics) Worker's Comp Is this a Worker's Comp case?: No [facility] Disclaimer: The information contained in this section may have been updated after the patient was seen, as this information can be updated by other users. Medical History No significant past medical history Surgical History No significant past surgical history Family History Grandmother Cancer maternal-breast Social History Smoking Status: Never smoker alcohol intake: never substance use type: denies use current occupational status: employed Travel in the last 8 weeks: None Have you lived/traveled outside [place] in past 30 days?: No Contact w/someone who lives/traveled outside [place] past 30 days?: No Exposure to someone with infectious disease in past 14 days?: No Do you have a fever (greater than 100.4 F or 38 C)?: No Have you tested positive for COVID-19: No Exposed to someone with COVID-19 in past 14 days?: No Do you have a sore throat?: No Do you have a cough?: Yes Do you have any weakness?: No Do you have any diarrhea?: No Are you experiencing any unusual bleeding?: No Do you have any muscle aches/pain?: No Do you have any abdominal pain?: No Are you experiencing loss of taste or smell?: No ROS Obtained: Yes All systems reviewed & no additional complaints except as documented Constitutional Constitutional: Reports chills and Reports fever(s) Eyes Eyes: Denies eye discharge ENT Ears, Nose, Mouth, and Throat: Reports as per HPI Cardiovascular Cardiovascular: Denies chest pain Respiratory Respiratory: Denies chest congestion and Reports cough Gastrointestinal Gastrointestingal: Reports nausea; Denies abdominal pain, constipation, cramping, diarrhea or vomiting Musculoskeletal Musculoskeletal: Denies arthralgias Integumentary/Breasts Skin/Breast: Denies rash Neurologic Neurologic: Denies paresthesias Physical Exam General General appearance: alert and in no apparent distress Head Head exam: atraumatic, normocephalic and normal inspection Eye Eye exam: Present normal appearance, PERRL and EOMI ENT ENT exam: Present normal exam, normal oropharynx, mucous membranes moist, TM's normal bilaterally and normal external ear exam Neck Neck exam: Present normal inspection, full ROM and trachea midline; Absent meningismus or lymphadenopathy Chest Chest inspection: Present normal inspection and symmetric chest wall rise; Absent tenderness Respiratory Respiratory exam: Present normal lung sounds bilaterally; Absent respiratory distress Cardiovascular Cardiovascular exam: Present regular rate and normal rhythm; Absent JVD Abdominal Exam Abdominal exam: Present soft and normal bowel sounds; Absent distention, tenderness or guarding Extremities Exam Extremities exam: Present normal inspection, full ROM and normal capillary refill; Absent calf tenderness Back Exam Back exam: Present normal inspection; Absent tenderness Neurological Exam Neurological exam: Present alert and oriented X3 Psychiatric Psychiatric exam: Present normal affect and normal mood Skin Skin exam: Present warm, dry, intact and normal color Lymphatic Lymphatic Findings: no adenopathy Medical Decision Making Medical Records Medical records reviewed: No I reviewed the patient's medical records. Screening: Per USPSTF and CDC recommendations, given the prevalence of disease in our region, it is our hospital?s policy to screen for HIV and viral Hepatitis for all patients aged 18 and over and those with ongoing risk factors. Hitesh Inquiry Pt receiving controlled substance: No Vital Signs: 04/03/24 18:15 Temperature 101.7 F H Temperature Source Oral Pulse Rate [Right Brachial] 125 H Respiratory Rate 18 Blood Pressure [Left Arm] 140/88 Blood Pressure Mean [Left Arm] 105 02 Sat by Pulse Oximetry 96 Lab Data Lab results reviewed: Yes I reviewed the patient's lab results. Lab Results 04/03/24 18:20: Influenza Type A Ag Positive A, Influenza Type B Ag Negative Orders (Tests/Meds): ED MEDICATIONS Generic Name Dose Route Start Last Admin Trade Name Freq PRN Reason Stop Dose Admin Acetaminophen 650 mg 04/03/24 18:17 04/03/24 18:18 Acetaminophen 325mg Tab PO 04/03/24 18:18 650 mg ONCE ONE Administration Dexamethasone Sodium Phosphate 8 mg 04/03/24 18:43 Dexamethasone 4mg/Ml 1ml Vial IM 04/03/24 18:44 ONCE ONE
[2024-04-03] MEDS: DEXAMETHASONE 4MG/ML 1ML VIAL 8 MG IM (18:47)
[2024-04-03 19:12] VITALS: BP 140/88; PULSE 125; RESP 18; TEMP 37.7
== END 2024-04-03 19:13 | disposition home or self-care (01) ==
PROVIDERS: Emergency Provider Nurse Practitioner Family; PCP Family Medicine
DX: J10.1 Influenza due to other identified influenza virus with other respiratory manifestations (principal); R50.9 Fever, unspecified; R05.9 Cough, unspecified
CPT/HCPCS: 87804; 96372; 99212; G0381; J1100

== ENCOUNTER 2024-07-03 13:44 | Outpatient (CLI) | payer BC, SELFPAY ==
--- NOTE | 2024-07-03 13:48 | US_ITS ---
PROCEDURE INFORMATION: Exam: US Left Breast, Complete, Screening US Right Breast, Complete, Screening Exam date and time: 07/03/2024 1:55 PM Age: 33 years old Clinical indication: Screening exam; Family history of breast cancer; (mat grandmother) TECHNIQUE: Imaging protocol: Complete ultrasound of all four quadrants of the left breast and the retroareolar regions, including ultrasound of the axilla when performed. Complete ultrasound of all four quadrants of the right breast and the retroareolar regions, including ultrasound of the axilla when performed. COMPARISON: US BREAST LT COMPLETE 02/22/2023 1:36 PM FINDINGS: ULTRASOUND: Breast ultrasound findings: Sonographic images of both breasts including the retroareolar regions, all 4 quadrants and the axilla do not demonstrate any solid or cystic masses. No architectural distortion or acoustical shadowing. No skin thickening or axillary adenopathy. Cursors were placed over normal subcutaneous fat in the left 2 o'clock axis 9 cm from the nipple IMPRESSION: No sonographic evidence of malignancy. Annual bilateral mammographic screening is recommended to commence at the age of 40 unless otherwise clinically indicated. ASSESSMENT: BI-RADS Category 1: Negative.
== END 2024-07-03 23:59 | disposition home or self-care (01) ==
LOC: RAD 13:45
PROVIDERS: PCP Nurse Practitioner; Visit Provider Nurse Practitioner
DX: R92.1 Mammographic calcification found on diagnostic imaging of breast (principal)
CPT/HCPCS: 76641